=== PATIENT | male | born 1965 | race Caucasian/White ===

== ENCOUNTER 2021-11-21 06:01 | Observation (INO) | payer OTHER ==
[2021-11-20 10:07] LABS: BASOPHILS # (AUTO) 0.1 (0.0-0.1); BASOPHILS % 0.7 % (0.0-1.0); EOSINOPHILS # (AUTO) 0.2 (0.0-0.4); EOSINOPHILS % 1.9 % (0.0-6.0); HEMOGLOBIN 13.8 g/dL (14.0-18.0); LYMPHOCYTES # (AUTO) 2.3 (1.0-3.2); LYMPHOCYTES % 25.7 % (18.0-39.1); MEAN CORPUSCULAR HEMOGLOBIN 31.2 pg (28-32); MEAN CORPUSCULAR HGB CONC 32.9 g/dL (31-35); MEAN CORPUSCULAR VOLUME 94.8 fL (81-99); MONOCYTES # (AUTO) 0.6 (0.2-0.8); MONOCYTES % 7.2 % (4.4-11.3); NEUTROPHILS # (AUTO) 5.6 (2.1-6.9); NEUTROPHILS % 64.3 % (38.7-80.0); PLATELET COUNT 244 x10e3/uL (140-360); RED BLOOD COUNT 4.43 x10e6/uL (4.3-5.7); RED CELL DISTRIBUTION WIDTH 12.1 % (11.7-14.4)
[2021-11-20 10:24] LABS: ANION GAP 10.6 mmol/L (8-16); CALCIUM 9.8 mg/dL (8.4-10.2); CREATININE, SERUM 0.89 mg/dL (0.72-1.25); POTASSIUM 3.6 mmol/L (3.5-5.1)
[2021-11-20 10:30] LABS: INR 0.85; PARTIAL THROMBOPLASTIN TIME 25.9 seconds (23.8-35.5); PROTHROMBIN TIME 12.3 seconds (11.9-14.5)
[~2021-11-21] VITALS: Ht 170.2 cm; Wt 76.2 kg
[~2021-11-21 06:01] MED LIST: AMLODIPINE BESY10 MG PO; COREG12.5 MG PO; LIPITOR10 MG PO; VIT D PO
[2021-11-21] MEDS ORDERED: SODIUM CHLORIDE 0.9% 50ML 100 ML ONE (06:22)
[2021-11-21] MEDS ORDERED: Vancomycin IV 1 GM VIAL ONE (06:47)
[2021-11-21] MEDS ORDERED: THROMBIN FOR SOLN 5,000 UNIT VIAL ONE (06:47)
[2021-11-21] MEDS ORDERED: BUPIVACAINE HCL 0.5% INJ 30 ML VIAL INJ ONE (07:42)
[2021-11-21] MEDS ORDERED: LIDOCAINE 2%/ EPINEPHRINE 20ML MDV ONE (07:42)
[2021-11-21] MEDS ORDERED: MAGNESIUM/ALUMINUM/SIMETHICONE 30 ML UDC PO PRN (10:00)
[2021-11-21] MEDS ORDERED: CEPACOL SORE THROAT LOZENGES PO PRN (10:00)
[2021-11-21] MEDS ORDERED: OXYCODONE/ACETAMINOPHEN 5-325 1 EACH TABLET PO PRN (10:00)
[2021-11-21] MEDS ORDERED: MORPHINE SULFATE 5 MG/ML VIAL IM PRN (10:00)
[2021-11-21] MEDS ORDERED: CARISOPRODOL 350 MG TAB PO PRN (10:00)
[2021-11-21] MEDS ORDERED: PROMETHAZINE HCL (IM) 25 MG/ML VIAL IM PRN (10:00)
[2021-11-21] MEDS ORDERED: ACETAMINOPHEN 325 MG TAB PO PRN (10:00)
[2021-11-21] MEDS ORDERED: LACTATED RINGER'S 1,000 ML IV SCH (10:00)
[2021-11-21] MEDS ORDERED: ONDANSETRON HCL INJ 2MG/ML 2ML 2 MG/ML VIAL IV PRN (10:00)
[2021-11-21] MEDS ORDERED: HYDROMORPHONE 2MG/ML 2 MG/ML ML IV PRN (10:00)
[2021-11-21] MEDS ORDERED: HYDROCODON-ACE1 EA12 PO (10:06)
[2021-11-21] MEDS ORDERED: FENTANYL CITRATE/PF 100MCG/2 ML INJ ONE ×2 (10:11→19:32)
[2021-11-21] MEDS ORDERED: MEPERIDINE HCL INJ 25 MG/ML VIAL ONE (10:48)
[2021-11-21 16:18] VITALS: BP 119/78
[2021-11-21 16:27] VITALS: BP 119/78
[2021-11-21 16:37] VITALS: BP 119/78
[2021-11-21] MEDS: CARVEDILOL 12.5 MG TAB PO SCH (18:14)
[2021-11-21] MEDS: Cefazolin 1 GM in SODIUM CHLORIDE 0.9% 50ML 50 ML IV SCH (18:15)
[2021-11-21] MEDS ORDERED: DEXAMETHASONE SOD PHOS INJ 4 MG/ML SDV ONE (18:55)
[2021-11-21] MEDS ORDERED: PROPOFOL IV EMULSION 10 MG/ML 20 ML VIAL ONE (18:55)
[2021-11-21] MEDS ORDERED: ONDANSETRON HCL INJ 2MG/ML 2ML 2 MG/ML VIAL ONE (18:55)
[2021-11-21] MEDS ORDERED: POVIDONE IODINE 0.05% 0.05 % ML PO ONE (18:55)
[2021-11-21] MEDS ORDERED: SEVOFLURANE INHAL SOLN 250 ML PEN BTL ONE (18:55)
[2021-11-21] MEDS ORDERED: NEOSTIGMINE 1 MG/ML 10ML VIAL ONE (18:55)
[2021-11-21] MEDS ORDERED: ATROPINE SULFATE 1 MG/ML VIAL ONE (18:55)
[2021-11-21] MEDS ORDERED: ROCURONIUM BROMIDE 10 MG/ML 5ML VIAL IV ONE (18:55)
[2021-11-21] MEDS ORDERED: LIDOCAINE HCL 2% LOCAL INJ 5 ML SDV VIAL INJ ONE (18:55)
[2021-11-21] MEDS ORDERED: KETOROLAC TROMETHAMINE 30 MG/ML VIAL ONE (18:55)
[2021-11-21] MEDS ORDERED: MIDAZOLAM HCL 2 MG/2 ML VIAL ONE (19:32)
[2021-11-21 20:00] VITALS: BP_SYST 112; BP_SYST 119; BP_DIAS 69; BP_DIAS 78
[2021-11-21] MEDS ORDERED: ZOLPIDEM TARTRATE 5 MG TAB PO PRN (21:00)
[2021-11-21] MEDS ORDERED: ATORVASTATIN 40 MG TAB PO SCH (21:00)
[2021-11-22] VITALS: BP 115/78
[2021-11-22] MEDS: Cefazolin 1 GM in SODIUM CHLORIDE 0.9% 50ML 50 ML IV SCH ×2 (02:47→09:59)
[2021-11-22 04:00] VITALS: BP 130/85
[2021-11-22 08:16] VITALS: BP 132/80
[2021-11-22] MEDS ORDERED: AMLODIPINE BESYLATE 10 MG TAB PO SCH (09:00)
[2021-11-22] MEDS: CARVEDILOL 12.5 MG TAB PO SCH (10:00)
[2021-11-22 10:06] VITALS: BP 132/80
[2021-11-22 10:07] VITALS: BP 132/80
== END 2021-11-22 11:07 | disposition home or self-care (01) ==
LOC: OR 06:01 → PACU V 10:10 → MED/SURG 15:38
PROVIDERS: ADMIT Neurological Surgery; ATTEND Neurological Surgery
DX: M50.122 Cervical disc disorder at C5-C6 level with radiculopathy (principal); Z01.818 Encounter for other preprocedural examination; Z20.822 Contact with and (suspected) exposure to COVID-19; I10 Essential (primary) hypertension; E78.5 Hyperlipidemia, unspecified; M19.90 Unspecified osteoarthritis, unspecified site
CPT/HCPCS: 20931; 22551; 22845; 36415; 64721; 71046; 72040; 76000; 80048; 85025; 85610; 85730; 86850; 86900; 88304; 88311; 93005; G0378 ×2; J0461; J0690 ×2; J1100; J1885; J2001 ×2; J2175; J2250; J2405; J2704; J2710; J3010; J3370; U0002